=== PATIENT | male | born 1960 | race Caucasian/White ===

== ENCOUNTER 2023-03-08 21:09 | Emergency (ER) | payer MEDICAID, SELFPAY ==
[2023-03-08 21:27] VITALS: BP 127/71; PULSE 96; RESP 19; TEMP 37.5; O2SAT 93; BMI 30.2
[2023-03-08 21:53] LABS: Basophils # 0.1 K/mm3 (0-0.2); Basophils % 0.5 % (0.1-2.0); Eosinophils # 0.1 K/mm3 (0.0-0.4); Eosinophils % 0.8 % (0.1-12.0); Hematocrit 43.6 % (42.0-52.0); Hemoglobin 15.1 g/dL (14.1-18.0); Lymphocytes # 1.1 K/mm3 (0.7-4.5); Lymphocytes % 8.7 % (10-50); Mean Corpuscular HGB Conc 34.6 g/dL (31.8-35.4); Mean Corpuscular Hemoglobin 29.7 pg (27.0-31.2); Mean Corpuscular Volume 85.9 fl (80-94); Monocytes # 1.2 K/mm3 (0.1-1.0); Monocytes % 9.5 % (1.7-9.3); Neutrophils # 9.8 K/mm3 (1.8-7.8); Neutrophils % 80.5 % (37.0-80.0); Platelet Count 295 K/mm3 (142-424); Red Blood Count 5.07 M/mm3 (4.60-6.20); Red Cell Distribution Width 12.6 % (11.5-17.5); White Blood Count 12.2 K/mm3 (4.8-10.8)
[2023-03-08 21:54] LABS: Influenza A, PCR Not Detected (NotDetected); Influenza B, PCR Not Detected (NotDetected)
[2023-03-08 21:58] LABS: Chloride 97 mmol/L (98-107); Potassium 4.3 mmoL/L (3.5-5.1); Sodium 133 mmol/L (136-145)
[2023-03-08 22:01] LABS: Alanine Aminotransferase 22 U/L (12-78); Albumin/Globulin Ratio 1.2 (1.1-1.8); Alkaline Phosphatase 66 U/L (38-126); Anion Gap 12.3 mEq/L (5-15); Aspartate Amino Transferase 20 U/L (17-59); Bilirubin,Total 0.9 mg/dl (0.2-1.3); Blood Urea Nitrogen 18 mg/dl (9-20); Carbon Dioxide 28 mmol/L (22.0-30.0); Creatinine Clearance Estimated 93 mL/min (50-200); Estimated Glomerular Filt Rate 68 ml/min (>60); GFR (African American) 82 ML/MIN (>60); Globulin 3.3 g/dL (1.3-3.2); Total Protein,Serum 7.3 g/dl (6.3-8.2)
[2023-03-08 22:02] LABS: Glucose 131 mg/dl (74-100)
--- NOTE | 2023-03-08 22:15 | XR_ITS ---
PROCEDURE INFORMATION: Exam: XR Chest Exam date and time: 03/08/2023 10:18 PM Age: 62 years old Clinical indication: Dyspnea TECHNIQUE: Imaging protocol: Radiologic exam of the chest. Views: 1 view. COMPARISON: No relevant prior studies available. FINDINGS: Lungs: Left lower lobe infiltrate. Pleural spaces: Unremarkable. No pleural effusion. No pneumothorax. Heart/Mediastinum: Unremarkable. No cardiomegaly. Bones/joints: Unremarkable. IMPRESSION: Left lower lobe infiltrate.
--- NOTE | 2023-03-08 22:17 | ED_ITS ---
Discharge Plan Disposition Patient Disposition: Still a Patient Referrals Follow up/Referrals: Mohinder Quintero MD [Primary Care Provider] - See instructions Activity Restrictions/Add. Instructions Additional Instructions/Restrictions: You have been evaluated in the ED for your complaints. You may follow-up with your PCP in the next 3 to 5 days. Please return to ED for any new or worsening symptoms. Please take in plenty of fluids during this time. Please control yo ur fevers at home with Tylenol and Motrin in the event that you develop them in the setting of your COVID-19 infection. Clinical Impressions Clinical Impression: COVID-19, Headache, Nausea Discharge ED Provider: Veronica Botello General Adult HPI <Veronica Botello MD - Last Filed: 03/08/23 22:20> General Chief complaint: Upper Respiratory Infection Stated complaint: covid + home test, BLANCO SOA Time Seen by Provider: 03/08/23 22:12 Mode of Arrival: Family Vehicle Source of Information: Patient Limitations: No Limitations Description of Symptoms (Recalled from ER Triage Doc. by RN): 62 yo male tested positive for covid 8 days ago, called his family doctor who called in [facility] for him (he's on day 4 of that); and has had an increase in SOA, accompanied by a stabbing headache that he is here to be evaluated for. Low grade fever, o verall yucky feeling he reports History of Present Illness HPI narrative: Patient is a 62-year-old male who was diagnosed with COVID on day has been on Paxlovid presents to the emergency department primarily for a severe headache. States that he feels like his head is going to explode. Denies any focal neurologic deficits denies any sudden component to this headache. Also states he had some difficulty breathing but that has improved over time. Denies any significant underlying past medical problems. Also has some nausea. Related Data Allergies Allergy/AdvReac Type Severity Reaction Status Date / Time INGREDIENT: NO KNOWN - NO Allergy Unknown Uncoded 02/22/17 15:23 KNOWN DRUG ALLERGY PFS <Veronica Botello MD - Last Filed: 03/08/23 22:20> FORMERLY [facility], 1928–1983 Disclaimer: The information contained in this section may have been updated after the patient was seen, as this information can be updated by other users. Social History (Updated 03/08/23 @ 22:20 by Veronica Botello MD) Smoking Status: Never smoker alcohol intake: never current occupational status: other Travel in the last 8 weeks: None <Veronica Botello MD - Last Filed: 03/08/23 22:20> ROS Obtained: Yes All systems reviewed & no additional complaints except as documented Physical Exam <Veronica Botello MD - Last Filed: 03/08/23 22:20> General General appearance: alert Respiratory Respiratory exam: Present normal lung sounds bilaterally and other (Oxygen saturation is 93% on room air); Absent respiratory distress, wheezes, stridor or accessory muscle use Cardiovascular Cardiovascular exam: Present regular rate; Absent tachycardia Neurological Exam Neurological exam: Present alert, oriented X3, CN II-XII intact and normal gait; Absent motor sensory deficit Medical Decision Making <Veronica Botello MD - Last Filed: 03/08/23 22:20> Lupillo Inquiry Pt receiving controlled substance: No Vital Signs: 03/08/23 21:27 03/08/23 22:57 Temperature 99.5 F Temperature Source Oral Pulse Rate 86 Pulse Rate [Left Brachial] 96 H Respiratory Rate 19 Blood Pressure 131/87 Blood Pressure [Left Arm] 127/71 Blood Pressure Mean [Left Arm] 89 Blood Pressure Source [Left Arm] Automatic Cuff Blood Pressure Position [Left Arm] Sitting 02 Sat by Pulse Oximetry 93 L 95 Oxygen Delivery Method Room Air Room Air Lab Data Lab results reviewed: Yes I reviewed the patient's lab results. Lab Results 03/08/23 21:36: SARS-CoV-2 (PCR) Detected A, Influenza A Untype (PCR) Not detected, Influenza Type B (PCR) Not detected 03/08/23 21:40: WBC 12.2 H, RBC 5.07, Hgb 15.1, Hct 43.6, MCV 85.9, MCH 29.7, MCHC 34.6, RDW 12.6, Plt Count 295, MPV 8.0, Neut % (Auto) 80.5 H, Lymph % (Auto) 8.7 L, [place] % (Auto) 9.5 H, Eos % (Auto) 0.8, Baso % (Auto) 0.5, Neut # (Auto) 9.8 H, Lymph # (Auto) 1.1, [place] # (Auto) 1.2 H, Eos # (Auto) 0.1, Baso # (Auto) 0.1, Sodium 133 L, Potassium 4.3, Chloride 97 L, Carbon Dioxide 28, Anion Gap 12.3, BUN 18, Creatinine 1.10, Estimated Creat Clear 93, Estimated GFR 68, Est GFR ( Amer) 82, Glucose 131 H, Calcium 9.0, Total Bilirubin 0.9, AST 20, ALT 22, Alkaline Phosphatase 66, Total Protein 7.3, Albumin 4.0, Globulin 3.3 H, Albumin/Globulin Ratio 1.2 03/08/23 21:40 03/08/23 21:40 Orders (Tests/Meds): ED MEDICATIONS Discontinued Medications Generic Name Dose Route Start Last Admin Trade Name Freq PRN Reason Stop Dose Admin Dexamethasone Sodium Phosphate 10 mg 03/08/23 22:15 03/08/23 22:28 Dexamethasone 4mg/Ml 1ml Vial IV 03/08/23 22:16 10 mg ONCE ONE Administration Diphenhydramine HCl 25 mg 03/08/23 22:16 03/08/23 22:28 Diphenhydramine 50mg/Ml Vial IV 03/08/23 22:17 25 mg ONCE ONE Administration Lactated Ringer's 1,000 mls @ 999 mls/hr 03/08/23 22:15 03/08/23 22:27 Lactated Ringer's 1000 Ml Bag IV 03/08/23 23:15 999 mls/hr .Q1H1M LENORE Administration Ketorolac Tromethamine 15 mg 03/08/23 22:15 03/08/23 22:28 Ketorolac 30mg/Ml Vial IV 03/08/23 22:16 15 mg ONCE ONE Administration Prochlorperazine Edisylate 10 mg 03/08/23 22:15 03/08/23 22:28 Prochlorperazine 10mg/2ml Vial IV 03/08/23 22:16 10 mg ONCE ONE Administration ORDERS Category Date Time Status CXR --portable [XR chest portable] Stat Exams 03/08/23 22:15 Completed Complete Blood Count Auto Diff Stat Lab 03/08/23 21:40 Completed Comprehensive Metabolic Panel Stat Lab 03/08/23 21:40 Completed Rapid PCR Covid and Flu A/B Stat Lab 03/08/23 21:36 Completed Medical Decision Narrative: 62-year-old male recently diagnosed with COVID presenting today with worsening symptoms including significant headache and nausea. Primary reason that he came to the emergency department was because of his headache. He is got a nonfocal neurologic exam he is afebrile no meningismus we will treat him symptomatically with Toradol Compazine Benadryl and dexamethasone. Additionally we will get a chest x-ray as his oxygen saturations are in the mid to low 90s. His symptoms are consistent with symptoms associated with the COVID-19 syndrome. I do not suspect meningitis encephalitis etc. No note of I currently suspect an alternative diagnosis will reassess after this initial workup is complete. Care will be transitioned to Dr. Ambrosio at 11 pm. <Osei Ambrosio, - Last Filed: 03/08/23 23:24> Vital Signs: 03/08/23 21:27 03/08/23 22:57 Temperature 99.5 F Temperature Source Oral Pulse Rate 86 Pulse Rate [Left Brachial] 96 H Respiratory Rate 19 Blood Pressure 131/87 Blood Pressure [Left Arm] 127/71 Blood Pressure Mean [Left Arm] 89 Blood Pressure Source [Left Arm] Automatic Cuff Blood Pressure Position [Left Arm] Sitting 02 Sat by Pulse Oximetry 93 L 95 Oxygen Delivery Method Room Air Room Air Lab Data Lab Results 03/08/23 21:36: SARS-CoV-2 (PCR) Detected A, Influenza A Untype (PCR) Not detected, Influenza Type B (PCR) Not detected 03/08/23 21:40: WBC 12.2 H, RBC 5.07, Hgb 15.1, Hct 43.6, MCV 85.9, MCH 29.7, MCHC 34.6, RDW 12.6, Plt Count 295, MPV 8.0, Neut % (Auto) 80.5 H, Lymph % (Auto) 8.7 L, [place] % (Auto) 9.5 H, Eos % (Auto) 0.8, Baso % (Auto) 0.5, Neut # (Auto) 9.8 H, Lymph # (Auto) 1.1, [place] # (Auto) 1.2 H, Eos # (Auto) 0.1, Baso # (Auto) 0.1, Sodium 133 L, Potassium 4.3, Chloride 97 L, Carbon Dioxide 28, Anion Gap 12.3, BUN 18, Creatinine 1.10, Estimated Creat Clear 93, Estimated GFR 68, Est GFR ( Amer) 82, Glucose 131 H, Calcium 9.0, Total Bilirubin 0.9, AST 20, ALT 22, Alkaline Phosphatase 66, Total Protein 7.3, Albumin 4.0, Globulin 3.3 H, Albumin/Globulin Ratio 1.2 Orders (Tests/Meds): ED MEDICATIONS Discontinued Medications Generic Name Dose Route Start Last Admin Trade Name Payamq PRN Reason Stop Dose Admin Dexamethasone Sodium Phosphate 10 mg 03/08/23 22:15 03/08/23 22:28 Dexamethasone 4mg/Ml 1ml Vial IV 03/08/23 22:16 10 mg ONCE ONE Administration Diphenhydramine HCl 25 mg 03/08/23 22:16 03/08/23 22:28 Diphenhydramine 50mg/Ml Vial IV 03/08/23 22:17 25 mg ONCE ONE Administration Lactated Ringer's 1,000 mls @ 999 mls/hr 03/08/23 22:15 03/08/23 22:27 Lactated Ringer's 1000 Ml Bag IV 03/08/23 23:15 999 mls/hr .Q1H1M LENORE Administration Ketorolac Tromethamine 15 mg 03/08/23 22:15 03/08/23 22:28 Ketorolac 30mg/Ml Vial IV 03/08/23 22:16 15 mg ONCE ONE Administration Prochlorperazine Edisylate 10 mg 03/08/23 22:15 03/08/23 22:28 Prochlorperazine 10mg/2ml Vial IV 03/08/23 22:16 10 mg ONCE ONE Administration ORDERS Category Date Time Status CXR --portable [XR chest portable] Stat Exams 03/08/23 22:15 Completed Complete Blood Count Auto Diff Stat Lab 03/08/23 21:40 Completed Comprehensive Metabolic Panel Stat Lab 03/08/23 21:40 Completed Rapid PCR Covid and Flu A/B Stat Lab 03/08/23 21:36 Completed Medical Decision Narrative: 62-year-old male recently diagnosed with COVID presenting today with worsening symptoms including significant headache and nausea. Primary reason that he came to the emergency department was because of his headache. He is got a nonfocal neurologic exam he is afebrile no meningismus we will treat him symptomatically with Toradol Compazine Benadryl and dexamethasone. Additionally we will get a chest x-ray as his oxygen saturations are in the mid to low 90s. His symptoms are consistent with symptoms associated with the COVID-19 syndrome. I do not suspect meningitis encephalitis etc. No note of I currently suspect an alternative diagnosis will reassess after this initial workup is complete. Care will be transitioned to Dr. Ambrosio at [address] Ambrosio: Patient was reassessed and at this time he states that his headache is much improved at this time. I have discussed his ED workup and results and current plan to discharge with supportive care measures in the setting of his COVID-19 infection. Provided with return to ED precautions and instructions concerning PCP follow-up. Patient verbalized understanding and agreement with plan. Subsequently discharged hemodynamically stable and in no acute distress. Critical Care <Veronica Botello MD - Last Filed: 03/08/23 22:20> Critical Care Time Critical Care Time: No
[2023-03-08] MEDS: LACTATED RINGERS 1000ML 1,000 ML 999 ML IV (22:27)
[2023-03-08] MEDS: diphenhydrAMINE 50MG/ML VIAL 25 MG IV (22:28)
[2023-03-08] MEDS: DEXAMETHASONE 4MG/ML 1ML VIAL 10 MG IV (22:28)
[2023-03-08] MEDS: PROCHLORPERAZINE 10MG/2ML VIAL 10 MG IV (22:28)
[2023-03-08] MEDS: KETOROLAC 30MG/ML VIAL 15 MG IV (22:28)
[2023-03-08 22:29] LABS: Coronavirus 19, PCR Detected (NotDetected)
[2023-03-08 22:57] VITALS: BP 131/87; PULSE 86; O2SAT 95
[2023-03-08 23:24] VITALS: BP 134/83; PULSE 86; RESP 18; TEMP 37.4; O2SAT 92
== END 2023-03-08 23:29 | disposition still patient (30) ==
PROVIDERS: Emergency Provider Student in an Organized Health Care Education/Training Program; PCP Family Medicine
DX: U07.1 COVID-19 (principal); R51.9 Headache, unspecified; R11.0 Nausea
CPT/HCPCS: 71045; 80053; 85025; 87636; 96361; 96374; 96375; 99285

== ENCOUNTER 2024-02-09 16:11 | Emergency (ER) | payer MEDICAID, SELFPAY ==
[2024-02-09 16:21] VITALS: BP 128/87; PULSE 86; RESP 18; TEMP 36.5; O2SAT 98; BMI 31.5
[2024-02-09] MEDS: CYCLOBENZAPRINE 10MG TABLET 10 MG PO (16:53)
[2024-02-09] MEDS: DEXAMETHASONE 4MG TABLET 10 MG PO (16:53)
[2024-02-09] MEDS: LIDOCAINE 5% TRANSDERMAL PATCH 1 EACH TP (16:54)
[2024-02-09] MEDS: KETOROLAC 60MG/2ML VIAL 60 MG IM (16:54)
--- NOTE | 2024-02-09 17:02 | ED_ITS ---
Discharge Plan Disposition Chief Complaint: PAIN Prescriptions Prescriptions: New cyclobenzaprine 10 mg tablet 10 mg PO TID PRN (Reason: muscle spasm) 5 Days Qty: 15 0RF lidocaine 4 % adhesive patch,medicated 1 patch topical DAILY Qty: 5 0RF Rx Instructions: may leave on for up to 12 hrs ibuprofen 800 mg tablet 800 mg PO TID PRN (Reason: pain) 7 Days Qty: 20 0RF Referrals Follow up/Referrals: Conrad Mon MD [Staff Physician] - See instructions Mohinder Quintero MD [Primary Care Provider] - See instructions Clinical Impressions Clinical Impression: Chronic back pain, Sciatica Print Language Print Language: [place] Discharge ED Provider: Veronica Botello General Adult HPI General Chief complaint: PAIN Stated complaint: back pain Time Seen by Provider: 02/09/24 16:17 Mode of Arrival: Ambulatory Source of Information: Patient Limitations: No Limitations Description of Symptoms (Recalled from ER Triage Doc. by RN): Pt. presents to the ED with lower back pain that radiates to the upper back and down into the calves. He deals with chronic back pain and has had previous nerve ablations in his back. He rates the pain currently at 8/10. He states it has gotten worse over the last few days. History of Present Illness HPI narrative: Patient is a 63-year-old presenting today with acute on chronic lower back pain. States he has been having this for years he has been seen by multiple pain specialist and neurosurgeons has had nerve ablations in the past and states that typically works for an extended period of time. States that his pain is located in the right lumbosacral region rating down the posterior aspect of his right leg no paralysis bowel or bladder incontinence saddle anesthesia high fevers history of cancer etc. Had a recent MRI within the last month that showed degenerative changes but no neurosurgical intervention was performed. States that he would like a new doctor for this. Related Data Previous Rx's ?Medication ?Instructions ?Recorded cyclobenzaprine 10 mg tablet 10 mg PO TID PRN muscle spasm 5 02/09/24 days #15 tabs ibuprofen 800 mg tablet 800 mg PO TID PRN pain 7 days #20 02/09/24 tabs lidocaine 4 % topical patch 1 patch topical DAILY #5 ea 02/09/24 Allergies Allergy/AdvReac Type Severity Reaction Status Date / Time No Known Allergies Allergy Unverified 02/09/24 17:02 [facility] Disclaimer: The information contained in this section may have been updated after the patient was seen, as this information can be updated by other users. Social History (Updated 03/08/23 @ 22:20 by Veronica Botello MD) Smoking Status: Former smoker alcohol intake: never current occupational status: other Travel in the last 8 weeks: None ROS Obtained: Yes All systems reviewed & no additional complaints except as documented Physical Exam General General appearance: alert and in no apparent distress Respiratory Respiratory exam: Present normal lung sounds bilaterally Cardiovascular Cardiovascular exam: Present regular rate Neurological Exam Neurological exam: Present alert and oriented X3 Medical Decision Making Medical Records Screening: Per USPSTF and CDC recommendations, given the prevalence of disease in our region, it is our hospital?s policy to screen for HIV and viral Hepatitis for all patients aged 18 and over and those with ongoing risk factors. Lupillo Inquiry Pt receiving controlled substance: No Vital Signs: 02/09/24 16:21 Temperature 97.7 F Temperature Source Oral Pulse Rate [Right Brachial] 86 Respiratory Rate 18 Blood Pressure [Left Arm] 128/87 Blood Pressure Mean [Left Arm] 100 Blood Pressure Source [Left Arm] Automatic Cuff Blood Pressure Position [Left Arm] Sitting 02 Sat by Pulse Oximetry 98 Oxygen Delivery Method Room Air Orders (Tests/Meds): ED MEDICATIONS Generic Name Dose Route Start Last Admin Trade Name Freq PRN Reason Stop Dose Admin Cyclobenzaprine HCl 10 mg 02/09/24 16:40 02/09/24 16:53 Cyclobenzaprine 10mg Tablet PO 02/09/24 16:41 10 mg ONCE ONE Administration Discontinued Medications Generic Name Dose Route Start Last Admin Trade Name Freq PRN Reason Stop Dose Admin Dexamethasone 10 mg 02/09/24 16:40 02/09/24 16:53 Dexamethasone 4mg Tablet PO 02/09/24 16:41 10 mg ONCE ONE Administration Ketorolac Tromethamine 60 mg 02/09/24 16:40 02/09/24 16:54 Ketorolac 60mg/2ml Vial IM 02/09/24 16:41 60 mg ONCE ONE Administration Lidocaine 1 each 02/09/24 16:40 02/09/24 16:54 Lidocaine 5% Transdermal Patch TP 02/09/24 16:41 1 each ONCE ONE Administration Medical Decision Narrative: 63-year-old above history and physical no red flags from history of physical standpoint not concerning for [employer] compression such as cauda equina or infectious etiology such as osteomyelitis or epidural abscess etc. He was given symptomati c medications and prescription to go home with and a referral to Dr. Mon I also encouraged him to follow-up with a neurosurgeon given the duration of this and also to review his recent MRI. He was discharged in a stable condition. Critical Care Critical Care Time Critical Care Time: No
[2024-02-09 17:43] VITALS: BP 129/92; PULSE 78; RESP 18; TEMP 36.9; O2SAT 98
== END 2024-02-09 17:44 | disposition home or self-care (01) ==
PROVIDERS: Emergency Provider Student in an Organized Health Care Education/Training Program; PCP Family Medicine
DX: M54.30 Sciatica, unspecified side (principal); M54.50 Low back pain, unspecified; G89.29 Other chronic pain
CPT/HCPCS: 96372; 99283; J1885; J8540